=== PATIENT | female | born 1985 | race Caucasian/White ===

== ENCOUNTER 2023-09-28 11:58 | Emergency (ER) | payer BC, SELFPAY ==
[2023-09-28 12:06] VITALS: BP 164/90
[2023-09-28 12:33] LABS: % Basophils 0.5 % (0-2); % Eosinophils 1.8 % (0-6); % Immature Granulocytes 0.4 % (0-0.5); % Lymphocytes 28.5 % (20.5-51.1); % Monocytes 8.2 % (1.7-9.3); % Neutrophils 60.6 % (42.2-75.2); Absolute Eosinophils 0.2 10^3/uL (0-0.7); Absolute Lymphocytes 2.3 10^3/uL (1.2-3.4); Absolute Monocytes 0.7 10^3/uL (0.1-0.6); Absolute Neutrophils 4.9 10^3/uL (1.4-6.5); Hematocrit 37.3 % (37.0-47.0); Hemoglobin 12.9 g/dL (12.0-16.0); Mean Corp Hgb Conc. 34.6 g/dL (33.0-37.0); Mean Corpuscular Hgb 31.1 pg (27.0-31.0); Mean Corpuscular Volume 89.9 fL (81.0-99.0); Mean Platelet Volume 9.4 fL (7.4-10.4); Nucleated Red Blood Cells % 0 %; Platelet Count 322 10^3/uL (130-400); Red Blood Cell Count 4.15 10^6/uL (4.20-5.40); Red Cell Dist. Width 12.1 % (11.5-14.5); White Blood Cell Count 8.1 10^3/uL (4.8-10.8)
[2023-09-28 12:51] LABS: ALT (SGPT) 13 U/L (0-35); AST (SGOT) 20 U/L (14-36); Alkaline Phosphatase 62 U/L (38-126); Blood Urea Nitrogen 16 mg/dl (7-17); Calcium 9.1 mg/dl (8.4-10.2); Carbon Dioxide 26 mmol/L (22-30); Chloride 103 mmol/L (98-107); Glucose 96 mg/dl (70-99); Potassium 4.5 mmol/L (3.5-5.1); Sodium 136 mmol/L (135-145); Total Bilirubin 0.4 mg/dl (0.2-1.3); Total Protein 6.4 g/dl (6.3-8.2); eGFR > 60.00
--- NOTE | 2023-09-28 13:18 | ED.GENMED ---
History of Present Illness
<Oksnaa Meza PA-C - Last Filed: 09/28/23 18:28>
General
Chief Complaint: Urinary Symptoms
Source: patient
Exam Limitations: none
Time Seen by Provider: 09/28/23 13:11
Nursing documentation reviewed up to this point in time: agreed with
Travel History
Have you had any contact with someone who has COVID-19?: No
Do you have any symptoms of coronavirus? Fever > 100 degrees, chills, cough, shortness of breath, sore throat, loss of taste or smell, muscle aches, or headache?: No
History of Present Illness
History of Present Illness:
38-year-old female with a past medical history of right renal duplex presenting the emergency department today with right flank pain and UTI symptoms for the past 7 days. Patient states that she started with the flank pain and urinary tract
symptoms at the same time. Patient states that few days ago, she went to [facility] and had a urinalysis done which revealed a urinary tract infection. Patient was started on ciprofloxacin. Patient was on this for 3 days and she still had
persistent symptoms and so she was switched to Macrobid and advised to report to the emergency department for further evaluation. Patient states that she saw a urologist around 10 years ago for the history of the right renal duplex at the time, she
has been on a low-dose antibiotic for many months but then she got and the antibiotic was stopped. Patient's has not had urology follow-up since and has not had any flank pain since. Patient denies nausea or vomiting, fevers or chills.
Patient states that occasionally her right flank pain will radiate to the front. Patient denies any blood in her urine.
Past History
<Oksana Meza PA-C - Last Filed: 09/28/23 18:28>
Past History
ED Past Medical History: None
ED Past Surgical History: None
Social History
Tobacco: Non-smoker
Alcohol: None
Review of Systems
<Oksana Meza PA-C - Last Filed: 09/28/23 18:28>
Review of Systems
All Other Systems: ROS reviewed and negative except as documented in HPI and ROS
Phy Exam
<Oksana Meza PA-C - Last Filed: 09/28/23 18:28>
Physical Exam
Physical Exam:
General: Patient is well appearing and in no acute distress; non-toxic
Skin: Warm and dry, no rashes or lesions
Head: Normocephalic, atraumatic
Eyes: Sclera non-icteric. EOMs intact. PERRLA.
Cardiac: Regular rate and rhythm, no murmurs
Peripheral Vascular: No lower extremity swelling or edema
Pulm: Normal respiratory effort, no wheezes, rales, or rhonchi
Abdomen: Moderate right-sided CVA tenderness. No palpable abdominal masses, mild right-sided abdominal tenderness palpation. Normoactive bowel sounds.
Neuro: CN II-XII intact, no focal neurologic deficits.
Psychiatric: Appropriate mood and affect.
Course
<Oksana Meza PA-C - Last Filed: 09/28/23 18:28>
Orders/Labs/Results
Orders:
Orders
09/28/23 12:11
Complete Blood Count/With Diff Urgent
Comprehensive Metabolic Panel Urgent
Lipase Urgent
09/28/23 13:22
HCG, Urine Qualitative Screen Urgent
Date Specimen was Collected: 09/28/23
Time Specimen was Collected: 13:15
Comment: ADD ON
Urinalysis Reflex To Culture Urgent
Date Specimen was Collected: 09/28/23
Time Specimen was Collected: 13:15
Urine Microscopic Reflex Cult Urgent
09/28/23 14:29
Ketorolac [Toradol] 15 mg IV NOW STA
Ondansetron Injectable [Zofran] 4 mg IV NOW STA
09/28/23 14:30
CT Abd/pel Without Iv Or Oral Urgent
Comment:
Reason For Exam: right flank pin, hx of right kidney duplexity
09/28/23 14:42
0.9% Sodium Chloride 500 ml [Nss] 500 ml IV BOLUS
09/28/23 14:46
Add On- LAB Urgent
Tests Added?: hcg qual
09/28/23 15:00
Add On- LAB Urgent
Tests Added?: lipase
09/28/23 15:24
Add On- LAB Urgent
Tests Added?: urine HCG
09/28/23 15:33
Add On - Microbiology Urgent
Tests Added?: hcg quantitative serum
09/28/23 16:57
Oxycodone/Acetaminophen [Percocet 5/325] 1 tablet PO NOW STA
09/28/23 17:57
CefTRIAXone [Rocephin] 1,000 mg IV NOW STA
Abnormal Lab Results
09/28/23 09/28/23
12:11 13:22
RBC 4.15 L 10^6/uL
(4.20-5.40)
MCH 31.1 H pg
(27.0-31.0)
Absolute Monos (auto) 0.7 H 10^3/uL
(0.1-0.6)
Leukocyte Esterase Rfl Trace A
(Negative)
Urine Bacteria (Reflex) Few A
(Negative)
09/28/23 12:11
09/28/23 12:11
Vital Signs
Initial and Last Documented VS:
Initial Vital Signs
Temp Pulse Resp BP Pulse Ox
98.2 F 79 18 164/90 96
09/28/23 12:06 09/28/23 12:06 09/28/23 12:06 09/28/23 12:06 09/28/23 12:06
Last Documented Vital Signs
Temp Pulse Resp BP Pulse Ox
98.2 F 78 22 127/84 100
09/28/23 12:06 09/28/23 18:40 09/28/23 17:20 09/28/23 18:40 09/28/23 17:20
<Modesto Raymond, DO - Last Filed: 09/28/23 23:56>
Orders/Labs/Results
Orders:
Orders
09/28/23 12:11
Complete Blood Count/With Diff Urgent
Comprehensive Metabolic Panel Urgent
Lipase Urgent
09/28/23 13:22
HCG, Urine Qualitative Screen Urgent
Date Specimen was Collected: 09/28/23
Time Specimen was Collected: 13:15
Comment: ADD ON
Urinalysis Reflex To Culture Urgent
Date Specimen was Collected: 09/28/23
Time Specimen was Collected: 13:15
Urine Microscopic Reflex Cult Urgent
09/28/23 14:29
Ketorolac [Toradol] 15 mg IV NOW STA
Ondansetron Injectable [Zofran] 4 mg IV NOW STA
09/28/23 14:30
CT Abd/pel Without Iv Or Oral Urgent
Comment:
Reason For Exam: right flank pin, hx of right kidney duplexity
09/28/23 14:42
0.9% Sodium Chloride 500 ml [Nss] 500 ml IV BOLUS
09/28/23 14:46
Add On- LAB Urgent
Tests Added?: hcg qual
09/28/23 15:00
Add On- LAB Urgent
Tests Added?: lipase
09/28/23 15:24
Add On- LAB Urgent
Tests Added?: urine HCG
09/28/23 15:33
Add On - Microbiology Urgent
Tests Added?: hcg quantitative serum
09/28/23 16:57
Oxycodone/Acetaminophen [Percocet 5/325] 1 tablet PO NOW STA
09/28/23 17:57
CefTRIAXone [Rocephin] 1,000 mg IV NOW STA
Abnormal Lab Results
09/28/23 09/28/23
12:11 13:22
RBC 4.15 L 10^6/uL
(4.20-5.40)
MCH 31.1 H pg
(27.0-31.0)
Absolute Monos (auto) 0.7 H 10^3/uL
(0.1-0.6)
Leukocyte Esterase Rfl Trace A
(Negative)
Urine Bacteria (Reflex) Few A
(Negative)
09/28/23 12:11
09/28/23 12:11
Vital Signs
Initial and Last Documented VS:
Initial Vital Signs
Temp Pulse Resp BP Pulse Ox
98.2 F 79 18 164/90 96
09/28/23 12:06 09/28/23 12:06 09/28/23 12:06 09/28/23 12:06 09/28/23 12:06
Last Documented Vital Signs
Temp Pulse Resp BP Pulse Ox
98.2 F 78 22 127/84 100
09/28/23 12:06 09/28/23 18:40 09/28/23 17:20 09/28/23 18:40 09/28/23 17:20
<Oksana Meza PA-C - Last Filed: 09/28/23 18:28>
MDM/Problems Addressed
Differential Diagnosis Includes:
Differentials include nephrolithiasis, pyelonephritis, acute cystitis, ureteral stricture, bladder stones, muscle spasm, herniated disc
MDM/Problems Addressed:
right flank pain
Chronic conditions affecting care:
right renal duplexity
<Oksana Meza PA-C - Last Filed: 09/28/23 18:28>
*Pulse Oximetry
Patient hypoxic: no
*Critical Care Note
Total Time (30-74mins, 75-104mins- exclusive of procedures): Not Applicable
Data Reviewed
Review of Other/Old Records Reveals: Records (Reviewed ER physician documentation from 02/11/2021)
Source: patient and records
<Oksana Meza PA-C - Last Filed: 09/28/23 18:28>
Patient Management
Escalation/DeEscalation of care consider admission/obs:
38-year-old female with a past medical history of right renal duplex presenting the emergency department today with right flank pain and UTI symptoms for the past 7 days. Patient states that she started with the flank pain and urinary tract
symptoms at the same time. Patient states that few days ago, she went to [facility] and had a urinalysis done which revealed a urinary tract infection. Patient was started on ciprofloxacin. Patient was on this for 3 days and she still had
persistent symptoms and so she was switched to Macrobid and advised to report to the emergency department for further evaluation.
Patient lab work here Emergency Department today was unremarkable, she had no leukocytosis, no electrolyte abnormalities, no hematuria, kidney function intact. On exam, patient has significant right-sided CVA tenderness CT of the abdomen pelvis was
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 Patient was on Cipro for 3 days Macrobid for 1 day which did not resolve her symptoms. Patient
did get her culture results back while here in emergency department which demonstrated that her E. coli was resistant to ciprofloxacin. Patient will be sent home on a course of Keflex and follow-up with her primary. Patient given discharge.
ED Attending Note
<Oksana Meza PA-C - Last Filed: 09/28/23 18:28>
-
Portions of this chart may have been created with voice recognition software.� Occasional wrong word or��sound alike� substitutions may have occurred due to the inherent limitations of voice recognition software.
<Modesto Raymond DO - Last Filed: 09/28/23 23:56>
ED Attending Note
Patient seen and examined by attending physician: Yes
I performed a history and physical exam of patient and discussed management with resident, I reviewed resident's note and agree with documented findings and plan of care.: Yes
ED Attending Note:
I have reviewed and agree with history and treatment plan by Oksana Meza. My exam revealed 38-year-old female no acute distress, ambulates without difficulty. Soft abdomen. Possible cystitis and pyelonephritis, although no significant
findings on CT. Patient afebrile. Treat with Rocephin, and Keflex, as indicated by her cultures and sensitivities. From [facility].
Discharge Plan
Departure
Patient Disposition: Home (Routine Discharge)
Date of Disposition: 09/28/23
Time of Disposition: 18:06
Patient with high blood pressure during this ER visit?: Yes
Condition: Good
Discharge Problem:
Pyelonephritis
Instructions: Urinary Tract Infection, Adult (DC), BLOOD PRESSURE
Prescriptions:
New
cephalexin 500 mg capsule
500 mg PO BID 10 Days Qty: 20 0RF
Referrals:
Stiven Crawford DO [Family Provider] -
Activity Restrictions/Additional Instructions:
We have sent an antibiotic called Keflex to your pharmacy. You can start taking this by mouth tomorrow. Please take 1 tablet twice daily for 10 days.
Please follow-up with your primary care provider in one week to ensure the resolution of your symptoms.
Return to the emergency department should you have any acute worsening of your pain, fevers or chills, blood in your urine, intractable vomiting, chest pain, shortness of breath, or any other signs or symptoms concerning to you.
Interventions
Interventions:
*Risk Screen - Suicide Last Done: 09/28/23 17:18
*General Assessment Last Done: 09/28/23 17:18
*Neglect/Abuse Screening Last Done: 09/28/23 17:18
*Nursing Disposition Last Done: 09/28/23 18:40
ED-Female Genitourinary Assessment Last Done: 09/28/23 13:29
Discharge Date and Time
Discharge Date/Time: 09/28/23 18:41
Print Language: KOREAN
[2023-09-28 13:32] LABS: Urine Albumin Negative (Neg - Trace); Urine Bilirubin Negative (Negative); Urine Character Clear (Clear); Urine Color Yellow; Urine Glucose Negative (Negative); Urine Ketone Negative (Negative); Urine Leukocyte Trace (Negative); Urine Nitrite Negative (Negative); Urine Occult Blood Negative (Negative); Urine Urobilinogen Negative (Neg - 1+)
[2023-09-28 13:45] LABS: Urine Bacteria Few (Negative); Urine Red Blood Cell 0-2 /HPF (0-2)
[2023-09-28] MEDS: NSS 500 IV (15:04)
[2023-09-28] MEDS: TORADOL 15 MG IV (15:05)
[2023-09-28] MEDS: ZOFRAN 4 MG IV (15:05)
[2023-09-28 15:46] LABS: HCG, Urine Qualitative Screen Negative
[2023-09-28 16:23] LABS: Lipase 78 U/L (23-300)
[2023-09-28] MEDS: PERCOCET 5/325 1 TABLET PO (17:17)
[2023-09-28 17:20] VITALS: BP 127/84
[2023-09-28] MEDS: ROCEPHIN 1000 MG IV (18:06)
[2023-09-28 18:40] VITALS: BP 127/84
== END 2023-09-28 18:41 | disposition home or self-care (01) ==
LOC: EMR 11:58
PROVIDERS: Emergency Medicine; EMERGENCY PHYSICIAN Emergency Medicine; FAMILY PHYSICIAN Family Medicine Sports Medicine
DX: N10 Acute pyelonephritis (principal); R03.0 Elevated blood-pressure reading, without diagnosis of hypertension; Z87.440 Personal history of urinary (tract) infections; Z88.1 Allergy status to other antibiotic agents; Z88.2 Allergy status to sulfonamides
CPT/HCPCS: 99284; 96374; 96375 ×2; 96361; 74176; 80053; 81003; 81015; 81025; 83690; 85025

== ENCOUNTER 2023-10-23 18:05 | Emergency (ER) | payer BC, SELFPAY ==
[2023-10-23 18:07] VITALS: BP 168/106
[2023-10-23 18:18] VITALS: BP 125/92
--- NOTE | 2023-10-23 18:26 | ED.GENMED ---
History of Present Illness
General
Chief Complaint: Abdominal Pain
Source: patient
Exam Limitations: none
Time Seen by Provider: 10/23/23 18:14
History of Present Illness
History of Present Illness:
This is a 38 year old female that comes in with c/o abd pain. State that she had a UTI and was treated with Cipro for 10 days but this was resistant. Then she was seen her and give IV medication and then 10 days of cephalexin. States that yesterday
she started with pain that would last about 10 seconds and go away in the right side of her abd. States that the attack is more in the upper abd and this causes her to brake out in a sweat. States that she had chest pain yesterday and some SOB.
States that she is nauseated and had diarrhea. States that she has pressure feeling with urination and frequency. Denies any fever, chills, chest pain today, vomiting, headache, dizziness.
Past History
Past History
ED Past Medical History: Other (UTI, Duplex Kidney)
ED Past Surgical History: Orthopedic (left ankle surgery X 2) and Tonsilectomy
Social History
Tobacco: Smoker
Alcohol: Occasional
Personal:
Living: with family
Review of Systems
Review of Systems
All Other Systems: ROS reviewed and negative except as documented in HPI and ROS
Constitutional: Reports no symptoms; Denies fever or chills
EENT: Reports no symptoms
Respiratory: Reports trouble breathing; Denies cough
Cardiac: Reports chest pain
ABD/GI: Reports abdominal pain, nausea and diarrhea; Denies vomiting
: Reports frequency and other (Pressure); Denies dysuria or urgency
Musculoskeletal: Reports no symptoms
Skin: Reports no symptoms
Neurological: Reports no symptoms; Denies dizzy or headache
Psychiatric: Reports no symptoms
Phy Exam
General Physical Exam
General Presentation: no apparent distress
General age: appears stated age
General Skin: warm and dry
General Habitus: normal
General Mental: alert
General Hydration: appears well hydrated
ENT Exam
ENT Exam: TM's normal, pharynx normal and neck supple
Eye Exam
Eye Exam: EOMI
Cardiovascular Exam
Cardiovascular Exam: regular rate/rhythm, no edema, no murmur and normal peripheral pulses
Pulmonary Exam
Pulmonary Exam: lungs clear, no respiratory distress, no rales, chest non tender, no crackles, no rhonchi, no wheezing and no cough
Gastrointestinal Exam
Gastrointestinal Exam: normal bowel sounds, soft, no organomegaly, no pulsatile mass, non distended and tender (Right sided tenderness with palation)
Musculoskeletal Exam
Musculoskeletal Exam: full ROM and no edema
Skin Exam
Skin Exam: normal color, warm/dry, no rash and no petechia
Psychiatric Exam
Psychiatric Exam: normal mood/affect
Course
Orders/Labs/Results
Orders:
Orders
10/23/23 18:16
Test Result ONCE
10/23/23 18:25
CT Abd/pelvis W Iv Cont Urgent
Comment:
Reason For Exam: right sided abd pain
0.9% Sodium Chloride 1000 ml [Nss] 1,000 ml IV BOLUS
Ondansetron Injectable [Zofran] 4 mg IV NOW STA
10/23/23 18:29
Electrocardiogram (*1) Urgent
Reason for Study: Abdominal Pain
EKG- Treatment ONCE
Pantoprazole [Protonix IV] 40 mg IV NOW STA
10/23/23 18:32
Complete Blood Count/With Diff Urgent
Comprehensive Metabolic Panel Urgent
HCG, Serum Qualitative Screen Urgent
Lipase Urgent
Urinalysis Reflex To Culture Urgent
Date Specimen was Collected: 10/23/23
Time Specimen was Collected: 18:21
Abnormal Lab Results
10/23/23
18:32
Absolute Neuts (auto) 8.0 H 10^3/uL
(1.4-6.5)
Absolute Lymphs (auto) 1.1 L 10^3/uL
(1.2-3.4)
Absolute Monos (auto) 0.7 H 10^3/uL
(0.1-0.6)
Neutrophils % 80.1 H %
(42.2-75.2)
Lymphocytes % 10.9 L %
(20.5-51.1)
Glucose 102 H mg/dl
(70-99)
10/23/23 18:32
10/23/23 18:32
glucose nonfasting. urine negative for infection or blood, Lipase normal at 78, HCG negative.
Vital Signs
Initial and Last Documented VS:
Initial Vital Signs
Temp Pulse Resp BP Pulse Ox
98.1 F 117 16 168/106 98
10/23/23 18:07 10/23/23 18:07 10/23/23 18:07 10/23/23 18:07 10/23/23 18:07
Last Documented Vital Signs
Temp Pulse Resp BP Pulse Ox
98.1 F 92 12 113/86 98
10/23/23 18:07 10/23/23 19:30 10/23/23 19:30 10/23/23 19:00 10/23/23 19:30
MDM/Problems Addressed
Differential Diagnosis Includes:
Pyelonephritis, Gallbladder disease ,
MDM/Problems Addressed:
This is a 38 year old female that comes in with c/o right sided abd pain. States that she has a UTI and was treated with Cipro first which was resistant and then Cephalexin for 10 days. States that yesterday she started with abd pain that would
come and go. States that she has been braking out in a sweat.
will check labs, urine and get CT.
Back into see patient. Explained that her CT shows that she has Enteritis. Her urine is negative for infection, and appendix is normal. This will go away on its own. Patient to follow up with the PCP as needed. Increase her water intake to 8-8oz
glasses daily. Return with any concerns.
Chronic conditions affecting care:
UTi
Acute Exacerbation and/or Progression of Chronic Illness:
UTI
*Radiology
Radiology exam reviewed: radiology read reviewed (CT night hawk- Mild mral thickening of loops of flid-filled small bowel, suspicious for enteritis. No evidence of obstructing ureteral calculus. Right renal cortical scarring. please note that
pyelonephritis cannot be excluded on this basis of CT. Correlation with UA is recommended. No evidence of ) and other (Ct cont-of bowel obstruction. Noninflamed appendix. Colonic diverticulosis without evidence of diverticulitis. Additional
findings: IUD, Focal fat adjacent to the falciform ligament. )
*Pulse Oximetry
Patient hypoxic: no
*EKG
Interpreted by ED Provider?: NA
Rate: EKG- N/A
*Mimeographer Interpretation
Rate: Mimeographer- N/A
*Critical Care Note
Total Time (30-74mins, 75-104mins- exclusive of procedures): Not Applicable
ED Attending Note
-
Portions of this chart may have been created with voice recognition software.� Occasional wrong word or��sound alike� substitutions may have occurred due to the inherent limitations of voice recognition software.
Discharge Plan
Departure
Patient Disposition: Home (Routine Discharge)
Date of Disposition: 10/23/23
Time of Disposition: 21:21
Patient with high blood pressure during this ER visit?: No
Condition: Good
Covid-19: Not Applicable
Discharge Problem:
Enteritis
Instructions: Abdominal Pain
Prescriptions:
No Action
cephalexin 500 mg capsule
500 mg PO BID 10 Days Qty: 20 0RF
Referrals:
Stiven Crawford DO [Family Provider] - Call in 1-3 days for appt
Activity Restrictions/Additional Instructions:
As discussed, your blood work is normal and your urine is negative for infection. Your CT shows that you have enteritis. This will go away on its own. Please increase your water intake to 8-8oz glasses daily. Follow up with the family doctor for
recheck. IF YOU HAVE ANY DIARRHEA STAY AWAY FORM MILK AND MILK PRODUCTS. IF YOU HAVE ANY OTHER CONCERNS PLEASE RETURN TO THE EMERGENCY ROOM.
Interventions
Interventions:
*Risk Screen - Suicide Last Done: 10/23/23 18:46
*General Assessment Last Done: 10/23/23 18:07
*Neglect/Abuse Screening Last Done: 10/23/23 18:46
ED- Fall Risk Assessment Last Done: 10/23/23 18:46
*ED COVID-19 Vaccine History Last Done: 10/23/23 18:07
DY-Pqokmp-Vpbnsblrbw Assessment Last Done: 10/23/23 18:46
Discharge Date and Time
Print Language: GREEK
[2023-10-23] MEDS: NSS 1000 IV (18:34)
[2023-10-23] MEDS: ZOFRAN 4 MG IV (18:45)
[2023-10-23] MEDS: PROTONIX IV 40 MG IV (18:45)
[2023-10-23 18:46] LABS: % Basophils 0.4 % (0-2); % Eosinophils 1.6 % (0-6); % Immature Granulocytes 0.4 % (0-0.5); % Lymphocytes 10.9 % (20.5-51.1); % Monocytes 6.6 % (1.7-9.3); % Neutrophils 80.1 % (42.2-75.2); Absolute Eosinophils 0.2 10^3/uL (0-0.7); Absolute Lymphocytes 1.1 10^3/uL (1.2-3.4); Absolute Monocytes 0.7 10^3/uL (0.1-0.6); Hematocrit 39.3 % (37.0-47.0); Mean Corp Hgb Conc. 35.6 g/dL (33.0-37.0); Mean Corpuscular Hgb 30.7 pg (27.0-31.0); Mean Corpuscular Volume 86.2 fL (81.0-99.0); Nucleated Red Blood Cells % 0 %; Platelet Count 336 10^3/uL (130-400); Red Blood Cell Count 4.56 10^6/uL (4.20-5.40); Red Cell Dist. Width 12.1 % (11.5-14.5); Urine Albumin Negative (Neg - Trace); Urine Bilirubin Negative (Negative); Urine Character Clear (Clear); Urine Color Straw; Urine Glucose Negative (Negative); Urine Ketone Negative (Negative); Urine Leukocyte Negative (Negative); Urine Nitrite Negative (Negative); Urine Occult Blood Negative (Negative); Urine Urobilinogen Negative (Neg - 1+)
[2023-10-23 19:00] VITALS: BP 113/86
[2023-10-23 19:01] LABS: HCG, Serum Qualitative Screen Negative
[2023-10-23 19:05] LABS: ALT (SGPT) 16 U/L (0-35); AST (SGOT) 26 U/L (14-36); Albumin 4.5 g/dl (3.5-5.0); Alkaline Phosphatase 68 U/L (38-126); Blood Urea Nitrogen 13 mg/dl (7-17); Calcium 9.4 mg/dl (8.4-10.2); Carbon Dioxide 25 mmol/L (22-30); Chloride 104 mmol/L (98-107); Glucose 102 mg/dl (70-99); Lipase 78 U/L (23-300); Potassium 4.6 mmol/L (3.5-5.1); Sodium 136 mmol/L (135-145); Total Bilirubin 0.5 mg/dl (0.2-1.3); Total Protein 7.1 g/dl (6.3-8.2); eGFR > 60.00
== END 2023-10-23 21:30 | disposition home or self-care (01) ==
LOC: EMR 18:05
PROVIDERS: Clinical Nurse Specialist Family Health; EMERGENCY PHYSICIAN Emergency Medicine; FAMILY PHYSICIAN Family Medicine Sports Medicine
DX: K52.9 Noninfective gastroenteritis and colitis, unspecified (principal); R06.02 Shortness of breath; R19.7 Diarrhea, unspecified; R07.9 Chest pain, unspecified; R11.0 Nausea; K57.30 Diverticulosis of large intestine without perforation or abscess without bleeding; Q63.0 Accessory kidney; F17.200 Nicotine dependence, unspecified, uncomplicated; Z87.440 Personal history of urinary (tract) infections; Z88.1 Allergy status to other antibiotic agents; Z88.2 Allergy status to sulfonamides
CPT/HCPCS: 99284; 96375; 96361; 96374; 74177; 80053; 81003; 83690; 84703; 85025; 93005; Q9967